=== PATIENT | female | born 1965 | race Caucasian/White ===

== ENCOUNTER → 2018-05-25 | Outpatient (CLI) | payer OTHER ==
[2015-03-06 17:04] VITALS: BP 150/67
[~2018-05-25] MED LIST: ESOM40CA PO; LEXAPRO20 MG PO; OMEP20CA10 PO; SERT25TA PO
--- NOTE | 2018-05-25 11:31 | KCIC ---
MRI Cervical Spine Without Contrast History: Cervical pain, new onset left chest pain, numbness in the left upper extremity, symptoms for about 4 weeks Technique: Multiplanar, multi sequential noncontrast MR imaging was performed of the cervical spine. Comparison: None Findings: There is some motion degradation. There is slightly lobulated, nonexpansile T2 and STIR hyperintense signal of the left paracentral cord at the level of the superior aspect of C7 in greatest dimension 0.3 cm AP by 0.2 cm transverse by 0.4 cm cc. Cervical vertebral body stature is maintained. There is straightening of the cervical spine. There is more advanced degenerative disc disease C6-7, minimally at C5-6. There is negligible anterior spondylolisthesis at C5-6. C2-C3: Neural foramina and spinal canal are adequate. C3-C4: There is mild left facet degenerative change. Neural foramina and spinal canal are adequate. C4-C5: Spinal canal and neural foramina are adequate. There is mild left facet degenerative change. C5-C6: There is very minimal disc osteophyte complex. Spinal canal is adequate. There is mild facet degenerative change. There is minimal uncovertebral degenerative change. Right neural foramen is adequate, mild narrowing of the left neural foramen. C6-C7: There is minimal disc osteophyte complex and bulge. Central canal is borderline about 10 mm. There is uncovertebral degenerative change bilaterally contributing to fairly severe left and overall moderate right neural foramina compromise. There is mild facet degenerative change. C7-T1: Spinal canal and neural foramina are adequate. Impression: 1. There is nonexpansile, slightly lobulated T2 and STIR hyperintense signal of the left cord at the C7 level. This may be due to myelomalacia, sequela of demyelination or mass other less likely considerations. Underlying mass is considered much less likely given lack of significant edema. However postcontrast imaging may be beneficial to ensure no enhancement. 2. There is borderline spinal stenosis C6-7. There is degenerative disc disease and spondylosis at C6-7. There is fairly severe left and moderate right C6-7 neural foramina compromise in part from uncovertebral degenerative change. Electronically signed by: Riki Hewitt MD (05/25/2018 11:26 AM) [email or web address]
== END | disposition home or self-care (01) ==
LOC: KCIC MRI 08:48
PROVIDERS: ATTEND Physician Assistant Medical
DX: M47.892 Other spondylosis, cervical region (principal); M50.123 Cervical disc disorder at C6-C7 level with radiculopathy; M43.12 Spondylolisthesis, cervical region; M25.78 Osteophyte, vertebrae
CPT/HCPCS: 72141

== ENCOUNTER → 2018-07-03 | Outpatient (CLI) | payer OTHER ==
[2015-03-06 17:04] VITALS: BP 150/67
[~2018-07-03] MED LIST changes: +GADOBUTROL 10 MMOL/10 ML VIAL IV ONE
--- NOTE | 2018-07-03 13:32 | KCIC ---
MRI cervical spine with and without contrast 07/03/2018 INDICATION: Cervical radiculopathy. Left upper extremity numbness. COMPARISON: MRI cervical spine May 25, 2018 TECHNIQUE: Multiplanar, multisequence MR imaging of the cervical spine was performed before and after the administration of intravenous contrast. 9 mL gadolinium based contrast was administered intravenously. FINDINGS: Alignment of the cervical spine is normal. Vertebral body heights are maintained. Marrow signal intensity is normal in all sequences. There is moderate disc height loss at C6-C7 and mild disc height loss at C5-C6. Similar disc bulges are identified at C4-C5, C5-C6 and C6-C7. Mild anterior marginal osteophytosis is present. There is a lobulated T2 hyperintense lesion involving the cervical spinal cord at the C7 vertebral level measuring approximately 3 x 3 x 6 mm. There may be faint subtle intrinsic T1 signal hyperintensity. There is associated enhancement on postcontrast images. There is no significant associated vasogenic edema. No definite cord expansion is visualized. C4-C5: There is mild disc bulge. Mild facet arthropathy. No neuroforaminal or spinal canal stenosis. C5-C6: There is a moderate disc bulge asymmetric to the left. There is mild facet arthropathy. Mild to moderate left and mild right neuroforaminal stenosis. No significant spinal canal stenosis. Findings are most significant changed. C6-C7: There is a posterior disc osteophyte complex, stable. There is mild facet arthropathy. Mild to moderate uncovertebral joint disease. Moderate right and severe left neuroforaminal stenosis. Mild spinal canal stenosis. IMPRESSION: No significant interval change involving a lobulated T2 hyperintense lesion involving the central spinal cord at the C7 vertebral level with associated enhancement. Differential considerations would include a demyelinating lesion versus a cavernoma versus neoplastic etiology (astrocytoma or ependymoma). Findings are atypical for a cord infarct. Electronically signed by: Krystal Luther MD (07/03/2018 1:29 PM) [email or web address]
== END | disposition home or self-care (01) ==
LOC: KCIC MRI 10:13
PROVIDERS: ATTEND Neurological Surgery
DX: M48.02 Spinal stenosis, cervical region (principal); M25.78 Osteophyte, vertebrae; M12.88 Other specific arthropathies, not elsewhere classified, other specified site; R29.890 Loss of height
CPT/HCPCS: 72156; A9585

== ENCOUNTER → 2018-07-26 | Outpatient (CLI) | payer OTHER ==
[2015-03-06 17:04] VITALS: BP 150/67
--- NOTE | 2018-07-26 13:31 | KCIC ---
EXAM: Brain MRI with and without contrast. HISTORY: Multiple sclerosis. TECHNIQUE: Multiplanar, multisequence magnetic resonance imaging of the brain was performed prior to and following the administration of 9 cc Gadavist intravenous contrast. COMPARISON: Cervical spine MRI dated 07/03/2018. FINDINGS: There is no restricted diffusion to suggest acute or subacute infarction. There is no susceptibility effect to suggest hemorrhage. There is no mass effect or midline shift. There is no hydrocephalus. There are several small focal areas of T2/FLAIR hyperintensity within the cerebral white matter. No suspicious enhancing lesion is seen. The orbits are unremarkable. There is a tiny right maxillary sinus mucous retention cyst and there is relative decreased right maxillary sinus size due to hypoplasia or the sequela of chronic sinusitis. The mastoid air cells are clear. There are normal flow voids within the cerebral vessels. No suspicious osseous lesion is seen. IMPRESSION: Multiple small focal areas of T2/FLAIR hyperintensity within the cerebral white matter, a nonspecific finding. The differential includes changes due to chronic small vessel disease as well as chronic demyelinating disease. No enhancing lesion is seen to suggest active demyelination. Electronically signed by: Mickie Becker MD (07/26/2018 1:28 PM) [email or web address]
== END | disposition home or self-care (01) ==
LOC: KCIC MRI 11:30
PROVIDERS: ATTEND Neurological Surgery
DX: I73.9 Peripheral vascular disease, unspecified (principal); J34.1 Cyst and mucocele of nose and nasal sinus; G35 Multiple sclerosis
CPT/HCPCS: 70553; A9585

== ENCOUNTER → 2019-01-11 | Outpatient (CLI) | payer OTHER ==
[2015-03-06 17:04] VITALS: BP 150/67
[~2019-01-11] MED LIST changes: -GADOBUTROL 10 MMOL/10 ML VIAL IV ONE; +GADOTERATE 5 MMOL/10ML VIAL. IVP ONE
--- NOTE | 2019-01-11 14:45 | KCIC ---
EXAMINATION: Magnetic resonance imaging (MRI) of the cervical spine with and without contrast 01/11/2019 1:15 PM HISTORY: Multiple sclerosis TECHNIQUE: Multiplanar multi-weighted MRI of the cervical spine was performed with and without intravenous contrast using the standard cervical spine protocol. Contrast information: 20 cc gadolinium based contrast. COMPARISON: None available. FINDINGS: The alignment of the cervical spine is normal. Vertebral bodies demonstrate normal signal intensity on all sequences. No acute fracture is identified; however, if trauma is suspected, a CT scan would be a more sensitive examination for fractures. The craniocervical junction is normal. The visualized portions of the skull base and the posterior fossa are normal. There is a stable central 5 mm cord lesion at the C7 vertebral level with associated enhancement. No additional enhancing lesion is identified. There is mild disc height loss at C5-C6 with endplate irregularity and mild anterior marginal osteophytosis. There is moderate disc height loss at C6-C7 with mild anterior marginal osteophytosis. No soft tissue abnormality is identified. Normal signal voids are present in the vertebral arteries. C2-C3: Disc is normal in configuration. Mild facet arthropathy. No neuroforaminal or spinal canal stenosis. C3-C4: Disc is normal in configuration. Mild right and moderate left facet arthropathy. No neuroforaminal or spinal canal stenosis. C4-C5: There is mild disc bulge. There is moderate left and mild right facet arthropathy. There is mild left neuroforaminal stenosis. No spinal canal stenosis. C5-C6: There is a posterior disc osteophyte complex asymmetric to the left with left foraminal disc protrusion. There is moderate facet arthropathy. Mild uncovertebral joint disease. Moderate left and mild right neuroforaminal stenosis. Mild spinal canal stenosis without deformity of the cord or cord signal alteration. C6-C7: There is a posterior disc osteophyte complex. There is mild to moderate facet arthropathy. Mild uncovertebral joint disease. Moderate left and mild right neuroforaminal stenosis. Mild spinal canal stenosis. C7-T1: Disc is normal in configuration. No neuroforaminal or spinal canal stenosis. IMPRESSION: 1. Stable 5 mm cord lesion involving the central cord at C7 with associated enhancement. Consideration may be given for active demyelination. Given stability of the lesion size, findings are atypical for underlying neoplastic etiology. 2. Mild cervical spondylosis, as described in detail above. Electronically signed by: Krystal Luther MD (01/11/2019 2:42 PM) [email or web address]
== END | disposition home or self-care (01) ==
LOC: KCIC MRI 12:45
PROVIDERS: ATTEND Neurological Surgery
DX: M47.892 Other spondylosis, cervical region (principal); G35 Multiple sclerosis; M48.02 Spinal stenosis, cervical region; M12.88 Other specific arthropathies, not elsewhere classified, other specified site; M50.20 Other cervical disc displacement, unspecified cervical region
CPT/HCPCS: 72156; A9575

== ENCOUNTER → 2020-01-23 | Outpatient (CLI) | payer OTHER ==
[2015-03-06 17:04] VITALS: BP 150/67
[~2020-01-23] MED LIST changes: -GADOTERATE 5 MMOL/10ML VIAL. IVP ONE; +GADOTERATE 7.5 MMOL/15ML VIAL. IVP ONE; -OMEP20CA10 PO; +OMEP20CA16 PO
--- NOTE | 2020-01-23 10:56 | RAD ---
EXAM: Cervical spine MRI without and with contrast. HISTORY: Cervical radiculopathy. C7 spinal cord lesion. TECHNIQUE: Multiplanar, multisequence magnetic resonance imaging of the cervical spine was performed without and with contrast. COMPARISON: 01/11/2019, 07/03/2018, 05/25/2018 FINDINGS: There is mild kyphosis centered at C5-C6. There is no significant listhesis. The vertebral bodies are normal in height. There is degenerative endplate remodeling with disc space narrowing and osteophytosis primarily at C6-C7, and to a lesser extent, C5-C6. There are few osseous hemangiomas. There is no suspicious osseous lesion. There is no fracture. There is a stable 4 x 3 x 2 mm T2 hyperintense lesion with slight enhancement within the cervical spinal cord to left of midline at C7. No additional spinal cord lesion is seen. At C2-C3, there is no stenosis. At C3-C4, there is mild pleural facet arthropathy. There is no stenosis. At C4-C5, there is mild bilateral facet arthropathy. There is minimal left foraminal stenosis. At C5-C6, there is a disc bulge and endplate osteophytosis. There is mild bilateral facet arthropathy. There is left greater than right uncovertebral arthropathy. There is mild right and moderate left foraminal stenosis. At C6-C7, there is a disc bulge and endplate osteophytosis. There is bilateral uncovertebral arthropathy. There is moderate right and severe left foraminal stenosis. There is mild central canal stenosis measuring 8.9 mm in anterior posterior dimension. IMPRESSION: 1. Stable 4 mm slightly enhancing T2 hyperintense lesion within the cervical spinal cord to the left of midline at C7. Given a reported history of demyelinating disease, the possibility of reactivation of a previously demonstrated active demyelinating lesion is not excluded. The possibility of a stable neoplasm is not completely excluded. No new lesion is seen. 2. Degenerative change involving the cervical spine, described in detail above. This is associated with mild right and moderate left foraminal stenosis at C5-C6 and moderate right and severe left foraminal and mild central canal stenosis at C6-C7. Electronically signed by: Mickie Becker MD (01/23/2020 10:53 AM) [facility]
== END | disposition home or self-care (01) ==
LOC: MRI 08:53
PROVIDERS: ATTEND Neurological Surgery
DX: S14.117A Complete lesion at C7 level of cervical spinal cord, initial encounter (principal); M47.22 Other spondylosis with radiculopathy, cervical region; M40.292 Other kyphosis, cervical region; M25.78 Osteophyte, vertebrae; M48.02 Spinal stenosis, cervical region; X58.XXXA Exposure to other specified factors, initial encounter; Y93.89 Activity, other specified; Y92.89 Other specified places as the place of occurrence of the external cause; Y99.8 Other external cause status
CPT/HCPCS: 72156; A9575